=== PATIENT | male | born 1950 | race African-American/Black ===

== ENCOUNTER 2019-01-02 14:29 | Inpatient (IN) | payer MEDICARE, BC ==
[~2019-01-02] VITALS: Ht 170.2 cm; Wt 134.7 kg
[2019-01-03] MEDS ORDERED: IPRATROPIUM BROMIDE (0.02%) 0.5MG/2.5ML NEB HHN STA (00:07)
[2019-01-03] MEDS ORDERED: ALBUTEROL (0.083%) 2.5MG/3ML NEB HHN STA (00:07)
[2019-01-03] MEDS ORDERED: CEFTRIAXONE 1 G PREMIX 50 ML IV ONE (00:15)
[2019-01-03] MEDS ORDERED: AZITHROMYCIN 500 MG in DEXT 5% WATER 250 ML IV ONE (00:15)
[2019-01-03 00:34] LABS: BASOPHILS % 0.5 % (0.0-2.0); EOSINOPHILS % 0.1 % (0.0-5.0); HEMATOCRIT. 37.8 % (42.0-52.0); HEMOGLOBIN. 12.4 g/dL (14.0-18.0); LYMPHOCYTES % 13.2 % (20.0-50.0); MEAN CORPUSCULAR HEMOGLOBIN 27.8 pg (28.0-32.0); MEAN CORPUSCULAR VOLUME 84.6 fL (80.0-94.0); MEAN PLATELET VOLUME 8.6 fl (7.4-10.4); MONOCYTES % 11.4 % (2.0-8.0); NEUTROPHILS % 74.8 % (40.0-76.0); PLATELET 310 x1000/uL (130-400); RED BLOOD CELL COUNT 4.46 mill/uL (4.7-6.1); RED CELL DISTRIBUTION WIDTH 13.4 % (11.6-14.6)
[2019-01-03 00:52] LABS: CHLORIDE 93 mEq/L (98-107)
[2019-01-03 01:28] LABS: CLARITY URINE CLOUDY (CLEAR); COLOR URINE YELLOW (YELLOW); KETONES URINE 1+ (NEGATIVE); LEUKOCYTE ESTERASE URINE 1+ (NEGATIVE); NITRITE URINE NEGATIVE (NEGATIVE); OCCULT BLOOD URINE NEGATIVE (NEGATIVE); PROTEIN URINE TRACE (NEGATIVE); SPECIFIC GRAVITY URINE 1.021 (1.005-1.030); UROBILINOGEN URINE 0.2 E.U./dL (0.2-1.0)
[2019-01-03 01:35] LABS: BG BASE EXCESS -5.2 mmol/L (-2.0-2.0); BG CARBOXYHEMOGLOBIN 0.4 % (0.5-1.5); BG DEOXYHEMOGLOBIN 8.6 % (0.0-5.0); BG FRACTION INSPIRED OXYGEN 21; BG HCO3 ACT 18.2 mmol/L (22.0-26.0); BG METHEMOGLOBIN 0.1 % (0.0-1.5); BG OXYGEN SATURATION 91.4 % (92.0-98.5); BG OXYHEMOGLOBIN 90.9 % (94.0-97.0); BG PCO2 29.5 mmHg (35.0-45.0); BG PH 7.409 (7.350-7.450); BG PO2 63.1 mmHg (75.0-100.0); BG SAMPLE SITE RIGHT RADIAL; BG TOTAL HEMOGLOBIN 13.1 g/dL (12.0-18.0); BG VENT MODE ROOM AIR
[2019-01-03] MEDS ORDERED: INSULIN REGULAR (HUMULIN R) 300UNITS/3ML SUBCUT NR (02:30)
[2019-01-03] MEDS ORDERED: DIPHENHYDRAMINE 25MG CAPSULE PO ONE (04:45)
[2019-01-03] MEDS ORDERED: ONDANSETRON HCL 4MG/2ML INJ IV PRN (06:45)
[2019-01-03] MEDS ORDERED: MAGNESIUM/ALUMINUM HYDROXIDE/SIMETHICONE 30ML UDC PO PRN (06:45)
[2019-01-03] MEDS ORDERED: IPRATROPIUM/ALBUTEROL 0.5-3(2.5)MG/3ML NEB INH PRN (06:45)
[2019-01-03] MEDS ORDERED: ACETAMINOPHEN 325MG TABLET PO PRN (06:45)
[2019-01-03] MEDS ORDERED: CLONIDINE 0.1MG TABLET PO PRN (06:45)
[2019-01-03] MEDS ORDERED: DEXTROSE 50% WATER 50ML SYRINGE IV PRN (06:45)
[2019-01-03] MEDS ORDERED: INSULIN LISPRO 100 UNITS/ML SUBCUT NR (08:45)
[2019-01-03] MEDS ORDERED: SODIUM CHLORIDE 0.9% 1,000 ML IV SCH (10:30)
[2019-01-03] MEDS: BLOOD SUGAR DIAGNOSTIC STRIP TEST SCH ×4 (10:30→21:00)
[2019-01-03 11:00] VITALS: BP 101/59
[2019-01-03] MEDS: GUAIFENESIN 600MG ER TABLET PO SCH ×2 (11:19→22:04)
[2019-01-03] MEDS: ENOXAPARIN 40MG/0.4ML SYR SUBCUT SCH ×2 (11:20→22:05)
[2019-01-03] MEDS: INSULIN LISPRO 100 UNITS/ML SUBCUT SCH ×3 (11:20→21:00)
[2019-01-03 12:00] VITALS: BP 95/53
[2019-01-03] MEDS ORDERED: INSULIN GLARGINE UD 100 UNITS/ML SYR SUBCUT NR (12:00)
[2019-01-03] MEDS ORDERED: IPRATROPIUM/ALBUTEROL 0.5-3(2.5)MG/3ML NEB HHN SCH (12:00)
[2019-01-03] MEDS: LEVOFLOXACIN 750MG PREMIX 150 ML IV SCH (13:35)
[2019-01-03 16:00] VITALS: BP_SYST 101; BP_SYST 94; BP_SYST 95; BP_DIAS 53; BP_DIAS 58
[2019-01-03 20:00] VITALS: BP 90/65
[2019-01-03] MEDS: IPRATROPIUM/ALBUTEROL 0.5-3(2.5)MG/3ML NEB HHN SCH (20:10)
[2019-01-03] MEDS: BUDESONIDE 0.5MG/2ML NEB HHN SCH (20:13)
[2019-01-03] MEDS: DIPHENHYDRAMINE 50MG/ML VIAL IV PRN (22:15)
[2019-01-04] VITALS: BP 98/52
[2019-01-04] MEDS: IPRATROPIUM/ALBUTEROL 0.5-3(2.5)MG/3ML NEB HHN SCH ×4 (01:30→20:29)
[2019-01-04] MEDS: GUAIFENESIN 200MG/10ML SUGAR FREE UDC PO PRN ×3 (03:07→20:46)
[2019-01-04 04:00] VITALS: BP 103/74
[2019-01-04] MEDS ORDERED: AMLO5TAB88 PO (04:33)
[2019-01-04] MEDS ORDERED: PRAV20TA57 PO (04:34)
[2019-01-04] MEDS ORDERED: POTA10CA42 PO (04:35)
[2019-01-04] MEDS: BLOOD SUGAR DIAGNOSTIC STRIP TEST SCH ×4 (06:50→20:44)
[2019-01-04 07:16] LABS: BASOPHILS % 0.3 % (0.0-2.0); EOSINOPHILS % 0.1 % (0.0-5.0); HEMATOCRIT. 35.1 % (42.0-52.0); HEMOGLOBIN. 11.5 g/dL (14.0-18.0); LYMPHOCYTES % 12.3 % (20.0-50.0); MEAN CORPUSCULAR HEMOGLOBIN 27.1 pg (28.0-32.0); MEAN CORPUSCULAR VOLUME 82.6 fL (80.0-94.0); MEAN PLATELET VOLUME 8.9 fl (7.4-10.4); MONOCYTES % 8.4 % (2.0-8.0); NEUTROPHILS % 78.9 % (40.0-76.0); PLATELET 312 x1000/uL (130-400); RED BLOOD CELL COUNT 4.25 mill/uL (4.7-6.1)
[2019-01-04 08:00] VITALS: BP 116/68
[2019-01-04] MEDS: INSULIN LISPRO 100 UNITS/ML SUBCUT SCH ×4 (08:10→20:47)
[2019-01-04] MEDS: GUAIFENESIN 600MG ER TABLET PO SCH ×2 (08:14→20:46)
[2019-01-04] MEDS: ENOXAPARIN 40MG/0.4ML SYR SUBCUT SCH ×2 (08:15→20:46)
[2019-01-04] MEDS: BUDESONIDE 0.5MG/2ML NEB HHN SCH ×2 (08:34→20:26)
[2019-01-04] MEDS ORDERED: INSULIN GLARGINE UD 100 UNITS/ML SYR SUBCUT SCH ×3 (10:00→22:15)
[2019-01-04 10:09] LABS: CHLORIDE 97 mEq/L (98-107)
[2019-01-04 10:16] LABS: PHOSPHORUS 3.8 mg/dL (2.5-4.9)
[2019-01-04] MEDS: LEVOFLOXACIN 750MG PREMIX 150 ML IV SCH (11:19)
[2019-01-04 12:00] VITALS: BP 114/73
[2019-01-04] MEDS: SULFAMETHOXAZOLE/TRIMETHOPRIM 800/160MG TABLET PO SCH (13:11)
[2019-01-04 16:00] VITALS: BP 103/74
[2019-01-04 20:00] VITALS: BP 105/62
[2019-01-04] MEDS: FLUTICASONE PROPIONATE 50MCG/SPRAY BOTTLE BOTHNSTRLS SCH (20:46)
[2019-01-05 00:19] VITALS: BP 120/99
[2019-01-05] MEDS: TEMAZEPAM 15MG CAPSULE PO PRN ×2 (01:10→23:54)
[2019-01-05] MEDS: IPRATROPIUM/ALBUTEROL 0.5-3(2.5)MG/3ML NEB HHN SCH ×4 (02:30→20:15)
[2019-01-05 04:00] VITALS: BP 118/79
[2019-01-05] MEDS: BLOOD SUGAR DIAGNOSTIC STRIP TEST SCH ×4 (07:40→20:28)
[2019-01-05 08:00] VITALS: BP 92/60
[2019-01-05] MEDS ORDERED: LOPERAMIDE HCL 2MG CAPSULE PO SCH (08:00)
[2019-01-05] MEDS: GUAIFENESIN 600MG ER TABLET PO SCH ×2 (08:45→20:27)
[2019-01-05] MEDS: SULFAMETHOXAZOLE/TRIMETHOPRIM 800/160MG TABLET PO SCH (08:45)
[2019-01-05] MEDS: INSULIN LISPRO 100 UNITS/ML SUBCUT SCH ×4 (08:45→20:56)
[2019-01-05] MEDS: ENOXAPARIN 40MG/0.4ML SYR SUBCUT SCH ×2 (09:00→20:28)
[2019-01-05] MEDS ORDERED: AZITHROMYCIN 600 MG TABLET PO SCH (09:00)
[2019-01-05] MEDS: FLUTICASONE PROPIONATE 50MCG/SPRAY BOTTLE BOTHNSTRLS SCH ×2 (09:00→20:28)
[2019-01-05] MEDS: BUDESONIDE 0.5MG/2ML NEB HHN SCH ×2 (09:18→20:14)
[2019-01-05] MEDS ORDERED: INSULIN GLARGINE UD 100 UNITS/ML SYR SUBCUT SCH ×3 (10:00→22:00)
[2019-01-05 12:00] VITALS: BP 104/69
[2019-01-05] MEDS: LEVOFLOXACIN 750MG PREMIX 150 ML IV SCH (15:40)
[2019-01-05 16:00] VITALS: BP 132/94
[2019-01-05] MEDS: GLIMEPIRIDE 2MG TABLET PO SCH (18:20)
[2019-01-05 20:00] VITALS: BP 110/80
[2019-01-05] MEDS: GUAIFENESIN 200MG/10ML SUGAR FREE UDC PO PRN (22:13)
[2019-01-06] VITALS: BP 115/77
[2019-01-06] MEDS: DIPHENHYDRAMINE 50MG/ML VIAL IV PRN (01:45)
[2019-01-06] MEDS: GUAIFENESIN 200MG/10ML SUGAR FREE UDC PO PRN (01:59)
[2019-01-06 04:00] VITALS: BP 119/79
[2019-01-06] MEDS: BLOOD SUGAR DIAGNOSTIC STRIP TEST SCH ×2 (07:29→13:16)
[2019-01-06 08:00] VITALS: BP 102/63
[2019-01-06] MEDS: GUAIFENESIN 600MG ER TABLET PO SCH (08:40)
[2019-01-06] MEDS: GLIMEPIRIDE 2MG TABLET PO SCH (08:40)
[2019-01-06] MEDS: SULFAMETHOXAZOLE/TRIMETHOPRIM 800/160MG TABLET PO SCH (08:40)
[2019-01-06] MEDS: ENOXAPARIN 40MG/0.4ML SYR SUBCUT SCH (08:41)
[2019-01-06] MEDS: INSULIN LISPRO 100 UNITS/ML SUBCUT SCH ×2 (08:42→13:35)
[2019-01-06] MEDS: FLUTICASONE PROPIONATE 50MCG/SPRAY BOTTLE BOTHNSTRLS SCH (08:46)
[2019-01-06] MEDS: BUDESONIDE 0.5MG/2ML NEB HHN SCH (09:49)
[2019-01-06] MEDS: IPRATROPIUM/ALBUTEROL 0.5-3(2.5)MG/3ML NEB HHN SCH ×2 (09:49→14:38)
[2019-01-06] MEDS ORDERED: INSULIN GLARGINE UD 100 UNITS/ML SYR SUBCUT SCH (10:00)
[2019-01-06 12:00] VITALS: BP 100/58
[2019-01-06] MEDS ORDERED: LEVOFLOXACIN 750MG PREMIX 150 ML IV SCH (13:00)
[2019-01-06] MEDS ORDERED: DILTIAZEM HCL 30MG TABLET PO SCH (14:00)
[2019-01-06 15:56] VITALS: BP 115/73
== END 2019-01-06 17:24 | disposition home or self-care (01) | DRG 871 ==
LOC: ER 14:29 → 7WST 01-03 03:52 → EDBEDREQTM 01-03 04:00 → EDBEDREQ 01-03 04:00 → EDBEDREQSVC 01-03 04:00 → ENRESERV 01-03 07:15
PROVIDERS: ADMIT Internal Medicine; ATTEND Internal Medicine
DX: A41.9 Sepsis, unspecified organism (principal); E43 Unspecified severe protein-calorie malnutrition; J96.00 Acute respiratory failure, unspecified whether with hypoxia or hypercapnia; J18.9 Pneumonia, unspecified organism; I50.43 Acute on chronic combined systolic (congestive) and diastolic (congestive) heart failure; J44.1 Chronic obstructive pulmonary disease with (acute) exacerbation; J44.0 Chronic obstructive pulmonary disease with (acute) lower respiratory infection; N17.9 Acute kidney failure, unspecified; N39.0 Urinary tract infection, site not specified; I13.0 Hypertensive heart and chronic kidney disease with heart failure and stage 1 through stage 4 chronic kidney disease, or unspecified chronic kidney disease; Z68.42 Body mass index [BMI] 45.0-49.9, adult; B96.20 Unspecified Escherichia coli [E. coli] as the cause of diseases classified elsewhere; G47.30 Sleep apnea, unspecified; E78.00 Pure hypercholesterolemia, unspecified; E66.01 Morbid (severe) obesity due to excess calories; E78.5 Hyperlipidemia, unspecified; M19.90 Unspecified osteoarthritis, unspecified site; N18.2 Chronic kidney disease, stage 2 (mild); E11.65 Type 2 diabetes mellitus with hyperglycemia; E11.22 Type 2 diabetes mellitus with diabetic chronic kidney disease; Z86.73 Personal history of transient ischemic attack (TIA), and cerebral infarction without residual deficits; Z96.643 Presence of artificial hip joint, bilateral; I25.2 Old myocardial infarction
CPT/HCPCS: 36415; 36600; 71045; 80048; 82010; 82375; 82805; 82962; 83036; 83605; 83735; 83880; 84100; 84145; 84484; 87077; 87186; 87804; 93005; 93306; 94640; 96365; 96366; 96367; 97162; 99285; J0456; J0696; J1200; J1650; J1815; J1956; J7060; J7611; J7620; J7626; Q0163

== ENCOUNTER 2024-08-15 12:52 | Inpatient (IN) | payer MEDICARE, BC ==
[~2024-08-15] VITALS: Ht 175.3 cm; Wt 147.1 kg
[~2024-08-15 12:52] MED LIST: DOLU50TA MT; FURO40TA5 PO; GABA-532 PO; GLIP5TAB22 MT; HYDR-4001 PO; POTA10CA93 PO; PRAV20TA57 PO; RALT400T PO
[2024-08-15] MEDS: SODIUM CHLORIDE 0.9% 1,000 ML IV ONE (15:35)
[2024-08-15] MEDS: IPRATROPIUM BROMIDE (0.02%) 0.5MG/2.5ML NEB HHN STA (15:36)
[2024-08-15] MEDS: ALBUTEROL (0.083%) 2.5MG/3ML NEB HHN STA (15:36)
[2024-08-15 16:00] VITALS: PULSE 90; RESP 18; O2SAT 97
[2024-08-15 16:06] LABS: CHLORIDE 105 mEq/L (98-107); POTASSIUM 2.9 mEq/L (3.5-5.1); SODIUM 139 mEq/L (136-145)
[2024-08-15 16:07] LABS: CALCIUM 9.2 mg/dL (8.7-10.4); CARBON DIOXIDE 26 mEq/L (21-32)
[2024-08-15 16:08] LABS: HEMATOCRIT. 33.5 % (42.0-52.0); HEMOGLOBIN. 10.8 g/dL (14.0-18.0); MEAN CORPUSCULAR HEMOGLOBIN 26.2 pg (28.0-32.0); MEAN CORPUSCULAR HGB CONC 32.2 g/dL (31.0-37.0); MEAN CORPUSCULAR VOLUME 81.5 fL (80.0-94.0); MEAN PLATELET VOLUME 8.6 fl (7.4-10.4); PLATELET 375 x1000/uL (130-400); RED BLOOD CELL COUNT 4.11 mill/uL (4.7-6.1); RED CELL DISTRIBUTION WIDTH 14.1 % (11.6-14.6); WHITE BLOOD COUNT 15.6 x1000/uL (4.5-11.0)
[2024-08-15 16:09] LABS: DIFFERENTIAL COMMENT 1
[2024-08-15 16:12] LABS: CREATININE 1.7 mg/dL (0.6-1.3); GLUCOSE 124 mg/dL (70-105); UREA NITROGEN BLOOD 32 mg/dL (9-23)
[2024-08-15 16:13] LABS: TROPONIN I HIGH SENSITIVITY 13 ng/L (3.0-53)
[2024-08-15 16:14] LABS: ALANINE AMINOTRANSFERASE 20 IU/L (10-49); ALBUMIN 3.7 g/dL (3.2-4.8); ASPARTATE AMINOTRANSFERASE 32 IU/L (<34); BILIRUBIN DIRECT 0.2 mg/dL (<=3.0); BILIRUBIN TOTAL 0.4 mg/dL (0.1-1.0); PROTEIN TOTAL 7.4 g/dL (6.0-8.3)
[2024-08-15] MEDS ORDERED: AZITHROMYCIN 500MG/250ML 250 ML IV ONE (16:15)
[2024-08-15] MEDS: CEFTRIAXONE 1GM/50ML 50 ML IV ONE (16:48)
[2024-08-15] MEDS: AZITHROMYCIN 500MG/250ML 250 ML IV NR (17:21)
[2024-08-15 17:22] LABS: CLARITY URINE CLEAR (CLEAR); COLOR URINE YELLOW (YELLOW); GLUCOSE URINE 3+ (NEGATIVE); KETONES URINE NEGATIVE (NEGATIVE); LEUKOCYTE ESTERASE URINE NEGATIVE (NEGATIVE); NITRITE URINE NEGATIVE (NEGATIVE); OCCULT BLOOD URINE NEGATIVE (NEGATIVE); PH URINE 5.5 (4.5-8.0); PROTEIN URINE 1+ (NEGATIVE); SPECIFIC GRAVITY URINE 1.015 (1.005-1.030); UROBILINOGEN URINE 0.2 E.U./dL (0.2-1.0)
[2024-08-15 17:45] LABS: BACTERIA URINE 2+; RBC URINE NONE SEEN /hpf (0-2); SQUAMOUS EPITHELIAL CELL URINE FEW /lpf (RARE/1+); WBC URINE 0-2 /hpf (0-2)
[2024-08-15 19:49] LABS: PLATELET ESTIMATE NORMAL
[2024-08-15 22:21] VITALS: BP 118/81; PULSE 99; RESP 18; TEMP 37.66968; O2SAT 93
[2024-08-16] VITALS: BP 102/79; PULSE 97; RESP 16; TEMP 36.72516; O2SAT 96
[2024-08-16 01:45] VITALS: BP 142/79; PULSE 98; RESP 18; TEMP 36.8072
[2024-08-16] MEDS ORDERED: MONT-46 MT (02:43)
[2024-08-16] MEDS ORDERED: TAMS-11 MT (02:43)
[2024-08-16] MEDS ORDERED: DEXTROSE 50% WATER 50ML SYRINGE IV PRN (03:00)
[2024-08-16] MEDS: ZOLPIDEM TARTRATE 5MG TABLET PO PRN (03:29)
[2024-08-16] MEDS: GABAPENTIN 300MG CAPSULE PO SCH ×2 (03:29→20:36)
[2024-08-16] MEDS: POTASSIUM CHLORIDE 20MEQ TABLET SR PO SCH (03:33)
[2024-08-16 04:00] VITALS: BP 118/77; PULSE 61; RESP 19; TEMP 36.9474; O2SAT 98
[2024-08-16] MEDS: GUAIFENESIN-DM 200MG-20MG/10ML UDC PO PRN (04:00)
[2024-08-16] MEDS: BLOOD SUGAR DIAGNOSTIC STRIP TEST SCH (04:00)
[2024-08-16] MEDS ORDERED: GABAPENTIN 300MG CAPSULE PO SCH (06:00)
[2024-08-16] MEDS: INSULIN LISPRO 100 UNITS/ML SUBCUT SCH (07:10)
[2024-08-16 07:50] VITALS: BP 135/87; PULSE 80; RESP 16; TEMP 36.6696; O2SAT 98
[2024-08-16] MEDS ORDERED: MEDICATION NOT ON FORMULARY EA (Pravastatin Sodium 20 MG) PO SCH (09:00)
[2024-08-16] MEDS: FUROSEMIDE 40MG TABLET PO SCH (09:03)
[2024-08-16] MEDS: MONTELUKAST SODIUM 10MG TABLET PO SCH (09:04)
[2024-08-16 11:56] LABS: HEMATOCRIT. 36.9 % (42.0-52.0); HEMOGLOBIN. 12.2 g/dL (14.0-18.0); MEAN CORPUSCULAR HEMOGLOBIN 27.3 pg (28.0-32.0); MEAN CORPUSCULAR VOLUME 82.8 fL (80.0-94.0); MEAN PLATELET VOLUME 8.9 fl (7.4-10.4); PLATELET 406 x1000/uL (130-400); RED BLOOD CELL COUNT 4.46 mill/uL (4.7-6.1); RED CELL DISTRIBUTION WIDTH 14.4 % (11.6-14.6); WHITE BLOOD COUNT 13.1 x1000/uL (4.5-11.0)
[2024-08-16 11:58] LABS: DIFFERENTIAL COMMENT 1
[2024-08-16 12:31] LABS: CHLORIDE 107 mEq/L (98-107); POTASSIUM 3.8 mEq/L (3.5-5.1); SODIUM 139 mEq/L (136-145)
[2024-08-16 12:32] LABS: CARBON DIOXIDE 24 mEq/L (21-32)
[2024-08-16 12:33] LABS: CALCIUM 9.3 mg/dL (8.7-10.4)
[2024-08-16 12:37] LABS: CREATININE 1.4 mg/dL (0.6-1.3); GLUCOSE 174 mg/dL (70-105); UREA NITROGEN BLOOD 22 mg/dL (9-23)
[2024-08-16 15:43] VITALS: BP 126/84; PULSE 92; RESP 16; TEMP 36.6696; O2SAT 98
[2024-08-16] MEDS: AZITHROMYCIN 250 MG TABLET PO SCH (18:43)
[2024-08-16 20:00] VITALS: BP 124/77; PULSE 91; RESP 20; TEMP 36.61404; O2SAT 96
[2024-08-16 20:05] LABS: PLATELET ESTIMATE INCREASED
[2024-08-16] MEDS: CEFTRIAXONE 1GM/50ML 50 ML IV SCH (20:36)
[2024-08-16] MEDS: ATORVASTATIN CALCIUM 10MG TABLET PO SCH (20:36)
[2024-08-17] VITALS: BP 139/89; PULSE 90; RESP 18; TEMP 36.22512; O2SAT 97
[2024-08-17 04:00] VITALS: BP 130/82; PULSE 86; RESP 18; TEMP 36.22512; O2SAT 98
[2024-08-17 08:00] VITALS: BP 138/96; PULSE 100; RESP 19; TEMP 36.55848; O2SAT 96
[2024-08-17 12:00] VITALS: BP_SYST 117; BP_SYST 138; BP_DIAS 86; BP_DIAS 96; PULSE 100; PULSE 93; RESP 18; RESP 19; TEMP 36.55848; TEMP 36.61404; O2SAT 96; O2SAT 97
[2024-08-17] MEDS ORDERED: LEVO750T68 MT (14:51)
[2024-08-17 16:00] VITALS: BP 115/80; PULSE 83; RESP 19; TEMP 36.50292; O2SAT 97
[2024-08-17 16:22] VITALS: BP 115/80; PULSE 83; TEMP 97.7; O2SAT 97
== END 2024-08-17 18:00 | disposition home or self-care (01) | DRG 194 ==
LOC: ER 12:52 → EDBEDREQTM 16:45 → EDBEDREQ 16:45 → 5WST 21:56 → 7EST 08-16 01:38
PROVIDERS: ADMIT Internal Medicine; ATTEND Internal Medicine
DX: J18.9 Pneumonia, unspecified organism (principal); J44.0 Chronic obstructive pulmonary disease with (acute) lower respiratory infection; Z68.42 Body mass index [BMI] 45.0-49.9, adult; Z20.822 Contact with and (suspected) exposure to COVID-19; E66.9 Obesity, unspecified; E11.9 Type 2 diabetes mellitus without complications; I10 Essential (primary) hypertension; Z91.199 Patient's noncompliance with other medical treatment and regimen due to unspecified reason
CPT/HCPCS: 36415; 71045; 76705; 80048; 80076; 81003; 82962; 83036; 83605; 83880; 84484; 85025; 87015; 87045; 87426; 87427; 87449; 87493; 93005; 94640; 99285; J0456; J0696; J1815; J7030